=== PATIENT | female | born 1990 | race Two or more races ===

== ENCOUNTER 2024-08-10 21:01 | Emergency (ER) | payer MEDICAID, OTHER ==
[~2024-08-10] VITALS: Ht 149.9 cm; Wt 58.1 kg
--- NOTE | 2024-08-10 21:22 | ED.PDOC ---
GI ASSESSMENT HPI Comments 34-year-old female with no reported PMHx or PSHx presents with a chief complaint of abdominal pain x onset yesterday with associated nausea, vomiting, diarrhea/melena. Patient states that her pain is localized diffusely, nonradiating, describes as sharp, and is tender to palpation. Patient mentions that she has been consistently vomiting and having black, tarry diarrhea. Patient denies any bright red blood in her emesis or stool. No other symptoms or modifying factors present at this time. Time Seen by MD: 21:16 Reviewed Notes: Medications, Allergies Allergies: Coded Allergies: NO KNOWN ALLERGIES (Unverified , 08/10/24) Information Source: Patient Mode of Arrival: Ambulatory Timing: Days Duration: Since onset Prehospital treatment: None Quality: Sharp Vomitus: Food Particles Stool: Black Severity: Moderate Recent: None Recent Hx of: None Pain Location: Diffuse Associated sign and symptoms: Nausea, Vomiting, Diarrhea, Melena, Abdominal Pain Past Medical History PAST MEDICAL HISTORY: Denies Surgical History: Denies all surgeries NURSE DISCHARGE History: Denies all NURSE DISCHARGE Hx Family History Family History: Reviewed,noncontributory to illness Social History Smoker: Non-Smoker Alcohol: Denies ETOH Use Drugs: Denies Drug Use Lives In: Home Constitutional: denies: chills, diaphoresis, fatigue, fever, malaise, sweats, weakness, others EENTM: denies: blurred vision, double vision, ear bleeding, ear discharge, ear drainage, ear pain, ear ringing, eye pain, eye redness, hearing loss, mouth pain, mouth swelling, nasal discharge, nose bleeding, nose congestion, nose pain, photophobia, tearing, throat pain, throat swelling, voice changes, others Respiratory: denies: cough, hemoptysis, orthopnea, SOB at rest, shortness of breath, SOB with excertion, stridor, wheezing, others Cardiovascular: denies: chest pain, dizzy spells, diaphoresis, Dyspnea on exertion, edema, irregular heart beat, left arm pain, lightheadedness, palpitations, PND, syncope, others Gastrointestinal: reports: abdominal pain, diarrhea, melena, nausea, vomiting; denies: abdomen distended, blood streaked bowels, constipated, dysphagia, difficulty swallowing, hematemesis, poor appetite, poor fluid intake, rectal bleeding, rectal pain, others Genitourinary: denies: abnormal vagina bleeding, burning, dyspareunia, dysuria, flank pain, frequency, hematuria, incontinence, pain, , vagina discharge, urgency, others Neurological: denies: dizziness, fainting, headache, left sided numbness, left sided weakness, numbness, paresthesia, pre-existing deficit, right sided numbness, right sided weakness, seizure, speech problems, tingling, tremors, weakness, others Musculoskeletal: denies: back pain, gout, joint pain, joint swelling, muscle pain, muscle stiffness, neck pain, others Integumetry: denies: bruises, change in color, change in hair/nails, dryness, laceration, lesions, lumps, rash, wounds, others Allergic/Immunocompromised: denies: Difficulty Healing, Frequent Infections, Hives, Itching, others Hematologic/Lymphatic: denies: anemia, blood clots, easy bleeding, easy bruising, swollen glands, others Endocrine: denies: excessive hunger, excessive sweating, excessive thirst, excessive urination, flushing, intolerance to cold, intolerance to heat, unexplained weight gain, unexplained weight loss, others Psychiatric: denies: anxiety, bipolar disorder, depression, hopeless, panic disorder, schizophrenia, sleepless, suicidal, others All Other Systems: Reviewed and Negative Physical Exam General Appearance: No Apparent Distress, Normal HEENT: Normal ENT Inspection, Pharynx Normal, TMs Normal Neck: Full Range of Motion, Non-Tender, Normal, Normal Inspection Respiratory: Chest Non-Tender, Lungs Clear, No Accessory Muscle Use, No Respiratory Distress, Normal Breath Sounds Cardiovascular: No Edema, No JVD, No Murmur, No Gallop, Normal Peripheral Pulses, Regular Rate/Rhythm Breast Exam: Deferred Gastrointestinal: No Organomegaly, Non Tender, No Pulsatile Mass, Normal Bowel Sounds, Soft Genitalia: Deferred Pelvic: Deferred Rectal: Deferred Extremities: No calf tenderness, Normal capillary refill, Normal inspection, Normal range of motion, Non-tender, No pedal edema Musculoskeletal : Apperance: Normal Neurologic: Alert, party plan sales consultant II-XII nml as Tested, No Motor Deficits, Normal Affect, Normal Mood, No Sensory Deficits Cerebellar Function: Normal Reflexes: Normal Skin: Dry, Normal Color, Warm Lymphatic: No Adenopathy Was a procedure done? Was a procedure done?: No GI differential Dx Differential Diagnosis: Incomplete , Inevitable , Bowel Obstruction, Cholecystitis, Diverticular disease, Ectopic , Gastritis/PUD, Gastroenteritis, Dehydration, Other X-Ray, Labs, Meds, VS Vital Signs Date Time Temp Pulse Resp B/P (MAP) Pulse Ox O2 Delivery O2 Flow Rate FiO2 08/10/24 22:25 100 18 118/75 08/10/24 22:25 100 18 118/75 (89) 100 08/10/24 22:13 98 16 100 Room Air* 0 21 08/10/24 21:55 98 18 107/71 08/10/24 21:45 98.7 98 16 107/71 (83) 100 98.7 08/10/24 21:01 98.7 107 18 119/82 (94) 98 98.7 Lab Test 08/10/24 21:32 Range/Units White Blood Count 9.0 4.4-10.8 10^3/uL Red Blood Count 4.70 4.0-5.20 10^6/uL Hemoglobin 13.7 12.2-16.2 g/dL Hematocrit 41.5 36.0-46.0 % Mean Corpuscular Volume 88.2 80.0-100.0 fL Mean Corpuscular Hemoglobin 29.2 28.0-32.0 pg Mean Corpuscular Hemoglobin Concent 33.1 32.0-36.0 g/dL Red Cell Distribution Width 13.1 11.8-14.3 % Platelet Count 263 140-450 10^3/uL Mean Platelet Volume 8.6 6.9-10.8 fL Neutrophils (%) (Auto) 77.2 37.0-80.0 % Lymphocytes (%) (Auto) 14.2 10.0-50.0 % Monocytes (%) (Auto) 8.1 0.0-12.0 % Eosinophils (%) (Auto) 0.1 0.0-7.0 % Basophils (%) (Auto) 0.4 0.0-2.0 % Neutrophils # (Auto) 6.9 1.6-8.6 10 ^3/uL Lymphocytes # (Auto) 1.3 0.4-5.4 10 ^3/uL Monocytes # (Auto) 0.7 0-1.3 10 ^3/uL Eosinophils # (Auto) 0 0-0.8 10 ^3/uL Basophils # (Auto) 0 0-0.2 10 ^3/uL Nucleated Red Blood Cells 0.1 % Sodium Level 138 136-145 mmol/L Potassium Level 3.6 3.5-5.1 mmol/L Chloride Level 103 98-107 mmol/L Carbon Dioxide Level 23 20-31 mmol/L Anion Gap 12 5-15 Blood Urea Nitrogen 7 L 9-23 mg/dL Creatinine 0.67 0.550-1.02 mg/dL Glomerular Filtration Rate Calc 119 >90 mL/min BUN/Creatinine Ratio 10.4 10.0-20.0 Serum Glucose 109 H 74-106 mg/dL Calcium Level 9.8 8.7-10.4 mg/dL Total Bilirubin 0.6 0.2-1.0 mg/dL Aspartate Amino Transferase (AST) 17 13-40 U/L Alanine Aminotransferase (ALT) 21 7-40 U/L Alkaline Phosphatase 85 46-116 U/L Total Protein 8.0 5.7-8.2 g/dL Albumin 5.0 H 3.2-4.8 g/dL Lipase 33 12-53 U/L Beta HCG, Quantitative 0.9 L 1.5-4.2 mIU/mL Current Medications Medications (Trade) Dose Ordered Sig/Robert Route Start Time Stop Time Status Last Admin Ondansetron HCl (Zofran) 4 mg ONCE ONCE IV 08/10/24 21:30 08/10/24 21:31 DC 08/10/24 21:54 Sodium Chloride 1,000 ml @ 1,000 mls/hr Q1H ONCE IVB 08/10/24 21:30 08/10/24 22:29 DC 08/10/24 21:54 Morphine Sulfate 4 mg ONCE ONCE IV 08/10/24 21:30 08/10/24 21:31 DC 08/10/24 21:55 Time of 1ST Reevaluation: 21:46 Reevaluation 1ST: Unchanged Patient Education/Counseling: Diagnosis, Treatment, Prognosis Family Education/Counseling: No Family Present Departure 1 Departure Time of Disposition: 23:31 Impression: Primary Impression: Ovarian cyst, left Disposition: 01 HOME / SELF CARE / HOMELESS Condition: Stable Discharged With: Self Critical Care Note Critical Care Time?: No Stability Stability form required: No Heart Score Heart Score: Heart Score Response (Comments) Value History N/A 0 EKG N/A 0 Age N/A 0 Risk Factors N/A 0 Troponin N/A 0 Total 0 I personally scribed for FAZAL GARCIA MD ([email or web address]) on 08/10/24 at 21:22. Electronically submitted by Ericskon Mojica ([email or web address]). FAZAL GARCIA MD Aug 10, 2024 21:22
[2024-08-10 21:45] VITALS: TEMP 98.7
[2024-08-10 21:50] LABS: Basophils # (auto) 0 10 ^3/uL (0-0.2); Basophils % (auto) 0.4 % (0.0-2.0); Eosinophils # (auto) 0 10 ^3/uL (0-0.8); Eosinophils % (auto) 0.1 % (0.0-7.0); Hematocrit 41.5 % (36.0-46.0); Hemoglobin 13.7 g/dL (12.2-16.2); Lymphocytes # (auto) 1.3 10 ^3/uL (0.4-5.4); Lymphocytes % (auto) 14.2 % (10.0-50.0); Mean Corpuscular Hemoglobin 29.2 pg (28.0-32.0); Mean Corpuscular Hgb Conc. 33.1 g/dL (32.0-36.0); Mean Corpuscular Volume 88.2 fL (80.0-100.0); Monocytes # (auto) 0.7 10 ^3/uL (0-1.3); Monocytes % (auto) 8.1 % (0.0-12.0); Neutrophils # (auto) 6.9 10 ^3/uL (1.6-8.6); Neutrophils % (auto) 77.2 % (37.0-80.0); Nucleated Red Blood Cells % 0.1 %; Platelet Count (auto) 263 10^3/uL (140-450); Red Cell Distribution Width 13.1 % (11.8-14.3)
[2024-08-10] MEDS: SODIUM CHLORIDE 0.9% 1,000 ML IVB ONE (21:54)
[2024-08-10] MEDS: ONDANSETRON HCL 4 MG/2 ML VIAL IV ONE ×2 (21:54→23:48)
[2024-08-10] MEDS: MORPHINE SULFATE 4 MG/ML SYR/VIAL IV ONE ×2 (21:55→23:49)
[2024-08-10 22:07] LABS: Alanine Aminotransferase 21 U/L (7-40); Alkaline Phosphatase 85 U/L (46-116); Anion Gap 12 (5-15); BUN/Creatinine Ratio 10.4 (10.0-20.0); Calcium 9.8 mg/dL (8.7-10.4); Carbon Dioxide 23 mmol/L (20-31); Chloride 103 mmol/L (98-107); Lipase 33 U/L (12-53); Potassium 3.6 mmol/L (3.5-5.1); Sodium 138 mmol/L (136-145)
[2024-08-10 22:08] LABS: Aspartate Aminotransferase 17 U/L (13-40); Bilirubin, Total 0.6 mg/dL (0.2-1.0)
[2024-08-10 22:09] LABS: Blood Urea Nitrogen 7 mg/dL (9-23); Glucose 109 mg/dL (74-106)
[2024-08-10 22:13] VITALS: PULSE 98; RESP 16; O2SAT 100
[2024-08-10] MEDS: IOHEXOL 300 MG/ML 100ML BOTTLE IJ ONE (22:31)
--- NOTE | 2024-08-10 22:51 | DVH ---
Exam: CT CT AB PEL WITH IV CON ONLY History: abd pain COMPARISON: None Technique: Multidetector spiral CT of the abdomen and pelvis was performed from lung bases to pubic s ymphysis. Intravenous contrast was administered during this examination. Portal venous imaging was obtained. Axial, coronal and sagittal multiplanar reformats were performed by the technologist on a [employer] workstation. Radiation Dose : 1. Abdomen/Pelvis: CTDIvol 11.35 mGy, DLP 598.89 mGy*cm. CONTRAST: Type of contrast: Omniscan 300 Contrast injected: 100 ml Contrast ingested: None Findings: Lung Bases: No acute or significant lung base finding. Normal heart size. No pleural or pericardial effusion. Liver: The liver is normal in size. There is moderate diffuse hepatic steatosis. No focal lesions. No rmal hepatic vascular enhancement. Gallbladder and Biliary Tree: Unremarkable Spleen: Unremarkable Pancreas: The pancreas is normal in appearance without focal lesions or abnormal enhancement. 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 No hydroneph rosis. Bladder: Unremarkable Bowel: The stomach is grossly normal in appearance. The distal ileum exhibits diffuse circumferential intramural edema and wall thickening and is moderately distended and fluid-filled, consistent with t erminal ileitis. The remaining small bowel and colon are normal in caliber and distribution. The appe ndix is not visualized; however, no secondary findings of acute appendicitis identified. Ascites: Absent Lymphadenopathy: No mesenteric, retroperitoneal or periportal lymphadenopathy. Abdominal Wall and Mesentery: Unremarkable. Vasculature: The visualized abdominal aorta is normal in size and caliber. Abdominal and pelvic vess els demonstrate normal enhancement. Pelvic Organs: Left adnexal cystic structure of near water attenuation measures 1.8 cm, likely repres enting an ovarian cyst. Likely physiologic endometrial fluid. Musculoskeletal: No aggressive focal bony lesions, acute fractures or dislocation. IMPRESSION: 1. Findings consistent with terminal ileitis, as can be seen in conditions such as crohn's disease or ulcerative colitis. 2. Probable left ovarian cyst. 3. Hepatic steatosis. Radiation optimization: All CT scans at this facility use at least one of these dose optimization chinmay hniques: automated exposure control mA and/or kV adjustment per patient size (includes targeted exam s where dose is matched to clinical indication) or iterative reconstruction.
[2024-08-10] MEDS ORDERED: GABA300T4 PO (23:43)
[2024-08-11 00:19] VITALS: BP 116/70; PULSE 90; RESP 16; O2SAT 100
== END 2024-08-11 00:08 | disposition home or self-care (01) ==
LOC: ER 21:01
DX: N83.202 Unspecified ovarian cyst, left side (principal)
CPT/HCPCS: 36415; 74177; 80053; 83690; 84702; 85025; 96361; 96374; 96375; 96376; 99285; J2270; J2405; J7030; Q9967

== ENCOUNTER 2025-04-10 19:36 | Emergency (ER) | payer MEDICAID ==
[~2025-04-10] VITALS: Ht 149.9 cm; Wt 61.2 kg
[~2025-04-10 19:36] MED LIST: GABA300T4 PO
[2025-04-10 19:37] VITALS: TEMP 97.3
--- NOTE | 2025-04-10 19:50 | ED.PDOC ---
GI ASSESSMENT HPI Comments 35 y/o F, presents to the ED for CC of nausea/vomiting. Patient states, she has been experiencing symptoms of nausea/vomiting with associated poor appetite x1day. Patient denies abdominal pain, diarrhea, constipation, sick contacts, or urinary symptoms. No other symptoms or modifying factors are present at this time. Chief Complaint: Nausea/Vomiting Time Seen by MD: 19:50 Reviewed Notes: Nurses Notes, Medications, Allergies Allergies: Coded Allergies: NO KNOWN ALLERGIES (Unverified , 08/10/24) Home Meds Active Scripts Gabapentin (Once-Daily) (Gabapentin) 300 Mg Tab, 300 MG PO Q6HP PRN, #30 TAB Prov:FAZAL GARCIA MD 08/10/24 Information Source: Patient Mode of Arrival: Ambulatory Timing: Days Duration: Since onset Prehospital treatment: None Quality: None Vomitus: Watery Stool: Normal Severity: Moderate Recent: None Recent Hx of: None Pain Location: None Modifying Factors: Nothing Associated sign and symptoms: Nausea, Vomiting Past Medical History PAST MEDICAL HISTORY: Denies Surgical History: Denies all surgeries BOILERMAKER HELPER History: Denies all BOILERMAKER HELPER Hx Family History Family History: Reviewed,noncontributory to illness Social History Smoker: Non-Smoker Alcohol: Denies ETOH Use Drugs: Denies Drug Use Lives In: Home Constitutional: denies: chills, diaphoresis, fatigue, fever, malaise, sweats, weakness, others EENTM: denies: blurred vision, double vision, ear bleeding, ear discharge, ear drainage, ear pain, ear ringing, eye pain, eye redness, hearing loss, mouth pain, mouth swelling, nasal discharge, nose bleeding, nose congestion, nose pain, photophobia, tearing, throat pain, throat swelling, voice changes, others Respiratory: denies: cough, hemoptysis, orthopnea, SOB at rest, shortness of breath, SOB with excertion, stridor, wheezing, others Cardiovascular: denies: chest pain, dizzy spells, diaphoresis, Dyspnea on exertion, edema, irregular heart beat, left arm pain, lightheadedness, palpitations, PND, syncope, others Gastrointestinal: reports: nausea, poor appetite, vomiting; denies: abdomen distended, abdominal pain, blood streaked bowels, constipated, diarrhea, dysphagia, difficulty swallowing, hematemesis, melena, poor fluid intake, rectal bleeding, rectal pain, others Genitourinary: denies: abnormal vagina bleeding, burning, dyspareunia, dysuria, flank pain, frequency, hematuria, incontinence, pain, , vagina discharge, urgency, others Neurological: denies: dizziness, fainting, headache, left sided numbness, left sided weakness, numbness, paresthesia, pre-existing deficit, right sided numbness, right sided weakness, seizure, speech problems, tingling, tremors, weakness, others Musculoskeletal: denies: back pain, gout, joint pain, joint swelling, muscle pain, muscle stiffness, neck pain, others Integumetry: denies: bruises, change in color, change in hair/nails, dryness, laceration, lesions, lumps, rash, wounds, others Allergic/Immunocompromised: denies: Difficulty Healing, Frequent Infections, Hives, Itching, others Hematologic/Lymphatic: denies: anemia, blood clots, easy bleeding, easy bruising, swollen glands, others Endocrine: denies: excessive hunger, excessive sweating, excessive thirst, excessive urination, flushing, intolerance to cold, intolerance to heat, unexplained weight gain, unexplained weight loss, others Psychiatric: denies: anxiety, bipolar disorder, depression, hopeless, panic disorder, schizophrenia, sleepless, suicidal, others All Other Systems: Reviewed and Negative Physical Exam General Appearance: No Apparent Distress, Normal HEENT: Normal ENT Inspection, Pharynx Normal Neck: Full Range of Motion, Non-Tender, Normal, Normal Inspection Respiratory: Chest Non-Tender, Lungs Clear, No Accessory Muscle Use, No Respiratory Distress, Normal Breath Sounds Cardiovascular: No Edema, No Murmur, No Gallop, Normal Peripheral Pulses, Regu lar Rate/Rhythm Breast Exam: Deferred Gastrointestinal: No Organomegaly, Non Tender, No Pulsatile Mass, Normal Bowel Sounds, Soft Genitalia: Deferred Pelvic: Deferred Rectal: Deferred Extremities: No calf tenderness, Normal capillary refill, Normal inspection, Normal range of motion, Non-tender, No pedal edema Musculoskeletal : Apperance: Normal Neurologic: Alert, riprap placing supervisor II-XII nml as Tested, No Motor Deficits, Normal Affect, Normal Mood, No Sensory Deficits Cerebellar Function: Normal Reflexes: Normal Skin: Dry, Normal Color, Warm Lymphatic: No Adenopathy Was a procedure done? Was a procedure done?: No GI differential Dx Differential Diagnosis: Gastritis/PUD, Gastroenteritis, Food Poisoning, Bacterial, Viral X-Ray, Labs, Meds, VS Vital Signs Date Time Temp Pulse Resp B/P (MAP) Pulse Ox O2 Delivery O2 Flow Rate FiO2 04/10/25 21:13 90 18 110/81 (91) 97 04/10/25 19:37 97.3 82 19 123/84 96 97.3 Lab Test 04/10/25 20:15 Range/Units White Blood Count 9.9 4.4-10.8 10^3/uL Red Blood Count 4.50 4.0-5.20 10^6/uL Hemoglobin 12.9 12.2-16.2 g/dL Hematocrit 38.5 36.0-46.0 % Mean Corpuscular Volume 85.6 80.0-100.0 fL Mean Corpuscular Hemoglobin 28.8 28.0-32.0 pg Mean Corpuscular Hemoglobin Concent 33.6 32.0-36.0 g/dL Red Cell Distribution Width 13.1 11.8-14.3 % Platelet Count 319 140-450 10^3/uL Mean Platelet Volume 8.8 6.9-10.8 fL Neutrophils (%) (Auto) 61.3 37.0-80.0 % Lymphocytes (%) (Auto) 28.4 10.0-50.0 % Monocytes (%) (Auto) 8.5 0.0-12.0 % Eosinophils (%) (Auto) 1.3 0.0-7.0 % Basophils (%) (Auto) 0.5 0.0-2.0 % Neutrophils # (Auto) 6.1 1.6-8.6 10 ^3/uL Lymphocytes # (Auto) 2.8 0.4-5.4 10 ^3/uL Monocytes # (Auto) 0.8 0-1.3 10 ^3/uL Eosinophils # (Auto) 0.1 0-0.8 10 ^3/uL Basophils # (Auto) 0.1 0-0.2 10 ^3/uL Nucleated Red Blood Cells 0.1 % Sodium Level 141 136-145 mmol/L Potassium Level 3.5 3.5-5.1 mmol/L Chloride Level 103 98-107 mmol/L Carbon Dioxide Level 26 20-31 mmol/L Anion Gap 12 5-15 Blood Urea Nitrogen 9 9-23 mg/dL Creatinine 0.75 0.550-1.02 mg/dL Glomerular Filtration Rate Calc 108 >90 mL/min BUN/Creatinine Ratio 12.0 10.0-20.0 Serum Glucose 88 74-106 mg/dL Calcium Level 9.8 8.7-10.4 mg/dL Total Bilirubin 0.7 0.2-1.0 mg/dL Aspartate Amino Transferase (AST) 20 13-40 U/L Alanine Aminotransferase (ALT) 33 7-40 U/L Alkaline Phosphatase 87 46-116 U/L Total Protein 8.0 5.7-8.2 g/dL Albumin 4.6 3.2-4.8 g/dL Lipase 41 12-53 U/L Current Medications Medications (Trade) Dose Ordered Sig/Robert Route Start Time Stop Time Status Last Admin Metoclopramide HCl (Reglan Injection) 5 mg ONCE ONCE IM 04/10/25 20:00 04/10/25 20:01 DC 04/10/25 21:10 Al Hydrox/Mg Hydrox/Simethicone (Maalox Plus) 30 ml ONCE ONCE PO 04/10/25 20:00 04/10/25 20:01 DC 04/10/25 21:11 X-Ray, Labs, Meds, VS Comment Imaging was reviewed by this provider, there is no obvious pathological or acute disease process. Pending radiology review Labs were reviewed by this provider, no abnormalities Vital signs reviewed by this provider, clinically stable Time of 1ST Reevaluation: 20:20 Reevaluation 1ST: Unchanged Patient Education/Counseling: Diagnosis, Treatment, Need For Follow Up (Follow up with PCP in the next 2-3 days. Return to the emergency department if symptoms worsen over the next 24-48 hours.) Family Education/Counseling: No Family Present SEPSIS Sepsis Screen Date sepsis recognized/suspect: Apr 10, 2025 Time Sepsis recognized/suspect: 1940 Recent Procedure: No On Antibiotic Therapy: No Respiratory Rate >20: No Heart Rate >90: No Temp<36 C (96.8 F) or >38.3 C: No SBP <90 or MAP <65 mmHG: No New Acute Mental Status Change: No Is the patient on CPAP, BIPAP,: No Physician Orders Urinalysis (04/10/25 19:51) Vital Signs Date Time Temp Pulse Resp B/P (MAP) Pulse Ox O2 Delivery O2 Flow Rate FiO2 04/10/25 21:13 90 18 110/81 (91) 97 04/10/25 19:37 97.3 82 19 123/84 96 97.3 Laboratory Tests Test 04/10/25 20:15 White Blood Count 9.9 10^3/uL (4.4-10.8) Medications Medications Dose Ordered Sig/Robert Route Start Time Stop Time Status Last Admin Dose Admin Al Hydrox/Mg Hydrox/Simethicone 30 ml ONCE ONCE PO 04/10/25 20:00 04/10/25 20:01 DC 04/10/25 21:11 Metoclopramide HCl 5 mg ONCE ONCE IM 04/10/25 20:00 04/10/25 20:01 DC 04/10/25 21:10 Departure 1 Departure Time of Disposition: 23:22 Impression: Primary Impression: Nausea and vomiting Qualified Codes: R11.2 - Nausea with vomiting, unspecified Disposition: HOME / SELF CARE / HOMELESS Condition: Stable e-Prescriptions Ondansetron Odt 4MG Tab (ZOFRAN PO) 4 Mg Tb 4 MG PO TID PRN, #20 TAB ODT TAB-DISSOLVE IN MOUTH, THEN SWALLOW Prov: LINSEY RIZVI 04/10/25 Discharged With: Self Critical Care Note Critical Care Time?: No Stability Stability form required: No Heart Score Heart Score: Heart Score Response (Comments) Value History N/A 0 EKG N/A 0 Age N/A 0 Risk Factors N/A 0 Troponin N/A 0 Total 0 I personally scribed for LINSEY RIZVIP ([email or web address]) on 04/10/25 at 19:50. Electronically submitted by Amisha Jansen ([email or web address]). I personally scribed for LINSEY RIZVI [employer] E[employer] DEVELOPER ([email or web address]) on 04/10/25 at 19:56. Electronically submitted by Amisha Jansen ([address]). LINSEY RIZVI Apr 10, 2025 19:50
[2025-04-10 20:42] LABS: Hematocrit 38.5 % (36.0-46.0); Hemoglobin 12.9 g/dL (12.2-16.2); Mean Corpuscular Hemoglobin 28.8 pg (28.0-32.0); Mean Corpuscular Volume 85.6 fL (80.0-100.0); Nucleated Red Blood Cells % 0.1 %
[2025-04-10 21:01] LABS: Alanine Aminotransferase 33 U/L (7-40); Albumin 4.6 g/dL (3.2-4.8); Alkaline Phosphatase 87 U/L (46-116); Anion Gap 12 (5-15); BUN/Creatinine Ratio 12.0 (10.0-20.0); Bilirubin, Total 0.7 mg/dL (0.2-1.0); Blood Urea Nitrogen 9 mg/dL (9-23); Calcium 9.8 mg/dL (8.7-10.4); Carbon Dioxide 26 mmol/L (20-31); Chloride 103 mmol/L (98-107); Glucose 88 mg/dL (74-106); Sodium 141 mmol/L (136-145); Total Protein 8.0 g/dL (5.7-8.2)
[2025-04-10] MEDS: METOCLOPRAMIDE HCL 5MG/ml INJ 2ml VIAL IM ONE (21:10)
[2025-04-10] MEDS: MAALOX PLUS or MAALOX 30 ML PO ONE (21:11)
[2025-04-10 21:13] VITALS: BP 110/81; PULSE 90; RESP 18; O2SAT 97
[2025-04-10 21:19] LABS: Potassium 3.5 mmol/L (3.5-5.1)
[2025-04-10 21:36] LABS: Lipase 41 U/L (12-53)
[2025-04-10] MEDS ORDERED: ZOFR4T PO (23:22)
[2025-04-10 23:54] LABS: Urine Protein, UAD TRACE (Negative)
== END 2025-04-11 00:14 | disposition home or self-care (01) ==
LOC: ER 19:36
DX: R11.2 Nausea with vomiting, unspecified (principal); Z79.899 Other long term (current) drug therapy
CPT/HCPCS: 36415; 80053; 81001; 83690; 85025; 96372; 99283; J2765

== ENCOUNTER 2025-04-25 09:09 | Emergency (ER) | payer MEDICAID ==
[~2025-04-25] VITALS: Ht 149.9 cm; Wt 59.0 kg
[~2025-04-25 09:09] MED LIST changes: +ZOFR4T PO
[2025-04-25 09:36] VITALS: BP 119/86; PULSE 73; RESP 18; TEMP 98.5; O2SAT 97
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
[2025-04-25] MEDS ORDERED: NAPR-746 PO (09:59)
[2025-04-25] MEDS ORDERED: CEPH500C PO (09:59)
[2025-04-25] MEDS: SILVER SULFADIAZINE 1 % TOPICAL CREAM 50GM TOP ONE (10:09)
== END 2025-04-25 10:07 | disposition home or self-care (01) ==
LOC: ER 09:09
DX: T23.221A Burn of second degree of single right finger (nail) except thumb, initial encounter (principal); Z79.899 Other long term (current) drug therapy; X08.8XXA Exposure to other specified smoke, fire and flames, initial encounter; Y93.89 Activity, other specified; Y92.89 Other specified places as the place of occurrence of the external cause; Y99.8 Other external cause status
CPT/HCPCS: 16020